=== PATIENT | female | born 1970 | race Asian ===

== ENCOUNTER 2016-11-22 11:32 | Emergency (ER) | payer BC ==
[2016-11-22 11:44] VITALS: BP 109/82
[2016-11-22] MEDS ORDERED: Ibuprofen TAB* 400 MG PO ONE (12:13)
--- NOTE | 2016-11-22 12:18 | UC ---
Sandy Blevins Rebecca, scribed for Meghana Dior MD on 11/22/16 at 1154 . Back Pain HPI - HPI Summary HPI Summary: Pt is a 46 y/o F who presents to [facility] c/o lumbar back pain. Sx worsened 2 weeks ago, though the pain has been present intermittently for longer than that. On triage, pain was noted to be 10/10 and characterized as burning, tightness, and pressure. Pain increases with movement and walking. Has not taken any medication or treated the pain. Sx aggravated by ambulation, which is made more difficult by the pain, and alleviated with pressure. Denies hematuria , dysuria and bladder or bowel incontinence. pt denies paresthesia. no leg weakness.s no trauma. No recent MVCs or assault. No prior back pain in the same location. Pt's medications reviewed this visit - History of Current Complaint Chief Complaint: UCLowerExtremity Stated Complaint: BACK PAIN Time Seen by Provider: 11/22/16 11:49 Hx Obtained From: Patient Hx Last Menstrual Period: 11/13/16 Onset/Duration: Still Present, Worse Since - 2 weeks Severity Currently: Severe Pain Intensity: 10 Pain Scale Used: 0-10 Numeric Back Pain: Is Discrete @ - Lumbar back b/l Character: Burning Aggravating Factor(s): Walking Alleviating Factor(s): Other - Pressure, achiness Associated Signs And Symptoms: Positive: Negative - Allergies/Home Medications Allergies/Adverse Reactions: Allergies Allergy/AdvReac Type Severity Reaction Status Date / Time No Known Allergies Allergy Verified 11/22/16 11:44 Home Medications: Home Medications NK [No Home Medications Reported] 11/22/16 [History Confirmed 11/22/16] PMH/Surg Hx/FS Hx/Imm Hx - Additional Past Medical History Additional PMH: Negative PMHx: Back problems, DM Previously Healthy: Yes - Surgical History Surgical History: None - Family History Known Family History: Positive: Other - No FHx back problems Negative: Diabetes - Social History Occupation: Employed Full-time - [employer]: With Family Alcohol Use: None Substance Use Type: None Smoking Status (MU): Never Smoked Tobacco - Immunization History Most Recent Influenza Vaccination: Not UTD Review of Systems Constitutional: Negative Skin: Negative Eyes: Negative ENT: Negative Respiratory: Negative Cardiovascular: Negative Gastrointestinal: Negative Genitourinary: Negative Motor: Negative Neurovascular: Negative Musculoskeletal: Other: - Lumbar back pain Neurological: Negative Psychological: Negative All Other Systems Reviewed And Are Negative: Yes - Comments Additional Review of Systems Comments: NEGATIVE: Hematuria, dysuria and bladder or bowel incontinence. Physical Exam Triage Information Reviewed: Yes Appearance: Well-Appearing, No Pain Distress, Well-Nourished Vital Signs: Initial Vital Signs Temp 98.0 F 11/22/16 11:39 Pulse 87 11/22/16 11:39 Resp 14 11/22/16 11:39 BP 109/82 11/22/16 11:39 Pulse Ox 100 11/22/16 11:39 Vital Signs Reviewed: Yes ENT: Positive: Hearing grossly normal, TMs normal Dental Exam: Normal Neck: Positive: Supple, Nontender, No Lymphadenopathy Respiratory Exam: Normal Respiratory: Positive: Chest non-tender, Lungs clear, Normal breath sounds, No respiratory distress, No accessory muscle use Cardiovascular Exam: Normal Cardiovascular: Positive: RRR, No Murmur Abdominal Exam: Normal Abdomen Description: Positive: Nontender, No Organomegaly Musculoskeletal: Positive: Other: - No pain c/t/l/s Mild paraspinal discomfort distal lumbar R>L Full AROM c spine + SLE b/l + flex/ext knee with discomfort in low back L>R + flex/ext ankle great toe Neurological Exam: Normal Neurological: Positive: Alert, Other: - + gross sensation throughout 2+ patellar , achilles without clonus Psychological Exam: Normal Skin Exam: Normal Diagnostics - Radiology L-Spine XR Radiology Interpretation Completed By: Radiologist - MODERATE SPURRING AND SCLEROSIS WITH LEFT SI JOINT MAY BE RELATED TO SACROILIITIS. NONSPECIFIC CALCIFIC OR OSSIFIC DENSITY PROJECTING OVER THE MINOR PELVIS ON THE RIGHT (SEE ABOVE). Re-Evaluation - Re-Evaluation First Eval Re-Evaluation Time: 13:25 Change: Improved Comment: Discussed XR results and D/C plan. Pain has improved. Pt ambulating without discomfort. reviewed XR and recommend f/u with pelvic ultrasound for pelvic calcification - pt in agreement with plan. declined work note - no work until next Tue. Pt will call PCP for f/u Back Pain Course/Dx - Course Course Of Treatment: Patient medications reviewed this visit. - Differential Dx/Diagnosis Provider Diagnoses: lumbar pain. pelvic calcification Discharge - Discharge Plan Condition: Stable Disposition: HOME Patient Education Materials: Low Back Strain (ED) Referrals: Kailey Ortiz NP [Primary Care Provider] - Additional Instructions: - Alternate ibuprofen (Advil, Motrin) and tylenol every 3hours for pain. Take with food. Do NOT take for more than 4-5 days - Stay well hydrated. Drink plenty of non-alcholic, non-caffinated beverages - Apply moist heat to your back - once your muscles are warm, slow gentle stretching exercises - Avoid heavy lifting, trauma. - Contact your doctor to schedule a follow-up appointment early next week. As discussed, it is recommended you discuss a pelvic ultrasound with your primary doctor to evaluate your ovaries The documentation as recorded by the Sanyd zee Rebecca accurately reflects the service I personally performed and the decisions made by me, Meghana Dior MD.
--- NOTE | 2016-11-22 13:12 | RAD ---
INDICATION: Back pain COMPARISON: None TECHNIQUE: Routine PA, lateral, and oblique imaging was performed . FINDINGS: Bones: There are no acute bony findings. There are no significant osteoarthritic findings. There is spurring about the superior left SI joint and there is mild sclerosis of the SI joint Alignment: Normal Disc spaces: The disc spaces are well-maintained Soft tissues: There are Essure coils. There is a calcification or ossification projected over the minor pelvis in the right. This could be related to the right ovary or be related to bony projection from the pelvis. Consider a pelvic sonogram to evaluate for a dermoid cyst of the right ovary. IMPRESSION: MODERATE SPURRING AND SCLEROSIS WITH LEFT SI JOINT MAY BE RELATED TO SACROILIITIS. NONSPECIFIC CALCIFIC OR OSSIFIC DENSITY PROJECTING OVER THE MINOR PELVIS ON THE RIGHT (SEE ABOVE).
== END 2016-11-22 13:42 | disposition home or self-care (01) ==
LOC: UCEAST 11:32
DX: M54.5 Low back pain (principal); M53.87 Other specified dorsopathies, lumbosacral region
CPT/HCPCS: 72110; 99212; A9270-GY; G0463